=== PATIENT | male | born 1945 | race Caucasian/White ===

== ENCOUNTER 2019-09-11 15:22 | Outpatient (CLI) | payer MEDICARE, BC, SELFPAY ==
--- NOTE | 2019-09-11 15:45 | USCV_ITS ---
CheyClaude tidwell Age: 74 Gender: M : 1945 Exam Date: 09/11/2019 15:45 Ordering Phys: Basil Dominguez MD ([email or web address]) Technologist: Jenna Hart Exam Location: [facility] [place] Indication: CRAMPS OF LOWER EXTREMITY Risk Factors: Previous Vascular Surgery: RIGHT LEFT BP: 154.0 / 52.00 BP: 147.0/ 54.00 0 0 Waveform Velocity (cm/s) Velocity (cm/s) Waveform Triphasic 79.7 Iliac Prox 121.3 Triphasic Triphasic 93.9 Iliac Mid 112.1 Triphasic Triphasic 99.1 Iliac Distal 106.8 Triphasic Triphasic 79.7 CHAINSTITCH ELASTIC ATTACHER 88.4 Triphasic Triphasic 80.9 SFA Prox 72.5 Triphasic Triphasic 53.5 SFA Mid 73.9 Triphasic Triphasic SFA Dist Triphasic 58.1 73.0 Triphasic 53.5 POP 84.9 Triphasic Triphasic 76.3 STAFF DEVELOPMENT COORDINATOR 88.3 Triphasic Biphasic 28.5 DPA 65.5 Biphasic 1.2 RAOUL 1.1 FINDINGS RT STAFF DEVELOPMENT COORDINATOR = 190 DPA = 180 LT STAFF DEVELOPMENT COORDINATOR = 165 DPA = 120 Minimal plaques in the femoral and iliac arteries bilaterally. Normal resting ABIs bilaterally. CONCLUSIONS No evidence of any significant arterial obstruction, based on the above findings. Dr David Herrera MD FAC (Electronically Signed) Final Date: 12 September 2019 20:18 S
== END 2019-09-11 15:23 | disposition home or self-care (01) ==
LOC: RAD 15:29
PROVIDERS: Family Provider Internal Medicine; PCP Internal Medicine; Visit Provider Internal Medicine Cardiovascular Disease
DX: R25.2 Cramp and spasm (principal); M79.662 Pain in left lower leg; M79.661 Pain in right lower leg
CPT/HCPCS: 93925

== ENCOUNTER 2019-09-19 09:40 | Outpatient (CLI) | payer MEDICARE, BC, SELFPAY ==
--- NOTE | 2019-09-19 | XR_ITS ---
WS: [id number] LUMBAR SPINE: 5 VIEWS TECHNIQUE: AP, lateral, and L5-S1 spot. Lateral views in neutral, flexion and extension. HISTORY: SPINAL STENOSIS OF LUMBAR REGION WITHOUT NEUROGENIC TAJ COMPARISON: None available. Marked straightening of the normal lumbar lordosis with LEFT convex curvature the lumbar spine. Large osteophytes extend anterior and posterior with degenerative disc disease throughout the lumbar spine . With flexion and extension no instability. No fractures. 4 mm retrolisthesis of L4 with no instabil ity. No destructive bone lesions. Facet joint arthropathy throughout the lumbar spine. SI joints are symmetric bilaterally. No soft tissue abnormalities. XR/XR lumbar spine min 4V [id number] IMPRESSION: 1. Advanced lumbar spondylosis with no instability. 2. L4 retrolisthesis by 4 mm.
--- NOTE | 2019-09-19 | XR_ITS ---
WS: [id number] Bilateral hips. HISTORY: Low back pain. COMPARISON: None. Mild narrowing of the hip joints bilaterally with minimal osteophytic ridging and sclerosis. No fract ures or dislocation. Irregularity along the cortical surface of the hips. Mild enthesopathy at the il iac crests and greater trochanters. XR/XR hip BI 3-4V wo/w pel [id number] IMPRESSION: 1. Mild bilateral hip joint osteoarthritis. 2. No fracture.
== END 2019-09-19 09:41 | disposition home or self-care (01) ==
LOC: RADOUTREAD 10:19
PROVIDERS: Family Provider Internal Medicine; PCP Internal Medicine; Visit Provider Internal Medicine
DX: Z01.89 Encounter for other specified special examinations (principal)

== ENCOUNTER 2021-11-18 06:00 | Outpatient (RCR) | payer MEDICARE, BC, SELFPAY | END 2021-12-16 23:59 | disposition home or self-care (01) | LOC: SPT 06:00 | PROVIDERS: Family Provider Internal Medicine; PCP Internal Medicine; Referring Provider Physical Medicine & Rehabilitation; Visit Provider Physical Medicine & Rehabilitation | DX: M51.36 Other intervertebral disc degeneration, lumbar region (principal); M72.2 Plantar fascial fibromatosis | CPT/HCPCS: 97032; 97035; 97110; 97140; 97162; G0283 ==

== ENCOUNTER 2021-12-17 06:00 | Outpatient (RCR) | payer MEDICARE, BC, SELFPAY | END 2021-12-23 23:59 | disposition home or self-care (01) | LOC: SPT 06:00 | PROVIDERS: PCP Internal Medicine; Referring Provider Physical Medicine & Rehabilitation; Visit Provider Physical Medicine & Rehabilitation | DX: M54.50 Low back pain, unspecified (principal); M72.2 Plantar fascial fibromatosis | CPT/HCPCS: 97035; 97110; G0283 ==

== ENCOUNTER → 2022-01-06 08:52 | Outpatient (BNVA) | payer MEDICARE, BC, SELFPAY | PROVIDERS: PCP Internal Medicine; Referring Provider Internal Medicine; Visit Provider Podiatrist Foot & Ankle Surgery | DX: M72.2 Plantar fascial fibromatosis (principal); M79.672 Pain in left foot | CPT/HCPCS: 99203 ==

== ENCOUNTER 2022-01-06 10:25 | Outpatient (CLI) | payer MEDICARE, BC, SELFPAY | END 2022-01-06 10:26 | disposition home or self-care (01) | LOC: SPT 10:26 | PROVIDERS: PCP Internal Medicine; Visit Provider Podiatrist Foot & Ankle Surgery | DX: Z46.89 Encounter for fitting and adjustment of other specified devices (principal); M72.2 Plantar fascial fibromatosis | CPT/HCPCS: 97760; 99203; L4397 ==

== ENCOUNTER → 2022-02-18 09:40 | Outpatient (BNVA) | payer MEDICARE, BC, SELFPAY | PROVIDERS: PCP Internal Medicine; Visit Provider Podiatrist Foot & Ankle Surgery | DX: M72.2 Plantar fascial fibromatosis (principal) | CPT/HCPCS: 99213 ==